=== PATIENT | female | born 1995 | race Hispanic/Latino ===

== ENCOUNTER 2020-01-03 01:36 | Emergency (ER) | payer MEDICAID ==
[2020-01-03] MEDS ORDERED: Acetaminophen 500 MG TAB ONE (02:23)
== END 2020-01-03 02:52 | disposition home or self-care (01) ==
LOC: ERS 01:36
DX: O9A.211 Injury, poisoning and certain other consequences of external causes complicating pregnancy, first trimester (principal); S00.83XA Contusion of other part of head, initial encounter; Z79.899 Other long term (current) drug therapy; W01.10XA Fall on same level from slipping, tripping and stumbling with subsequent striking against unspecified object, initial encounter; Z3A.01 Less than 8 weeks gestation of pregnancy